=== PATIENT | female | born 1980 | race Caucasian/White ===

== ENCOUNTER → 2018-05-19 | Outpatient (CLI) | payer OTHER | LOC: FIMAGING 12:36 | PROVIDERS: ATTEND Obstetrics & Gynecology | DX: O09.512 Supervision of elderly primigravida, second trimester (principal); Z3A.19 19 weeks gestation of pregnancy; Z82.79 Family history of other congenital malformations, deformations and chromosomal abnormalities; Z86.012 Personal history of benign carcinoid tumor ==

== ENCOUNTER → 2018-06-25 | Outpatient (CLI) | payer OTHER | LOC: FIMAGING 09:08 | PROVIDERS: ATTEND Obstetrics & Gynecology | DX: O09.512 Supervision of elderly primigravida, second trimester (principal); Z3A.25 25 weeks gestation of pregnancy ==

== ENCOUNTER 2018-10-09 12:31 | Inpatient (IN) | payer OTHER ==
[2018-10-09] MEDS ORDERED: OXYTOCIN/RINGERS LACTATE 500 ML IV SCH (13:43)
[2018-10-09] MEDS ORDERED: LR 500 ML IV PRN (13:43)
[2018-10-09] MEDS ORDERED: OLIVE OIL 118 ML BTL MISC PRN (13:43)
[2018-10-09] MEDS ORDERED: MISOPROSTOL 200 MCG TAB PR PRN (13:43)
[2018-10-09] MEDS ORDERED: EPSOM SALT 454 GM TP PRN (13:43)
[2018-10-09] MEDS ORDERED: LR 1,000 ML IV PRN (13:43)
[2018-10-09] MEDS ORDERED: IBUPROFEN 600 MG TAB PO PRN (13:43)
[2018-10-09] MEDS ORDERED: OXYTOCIN/RINGERS LACTATE 1,000 ML IV PRN (13:43)
[2018-10-09] MEDS ORDERED: LIDOCAINE 1% 300 MG/30 ML SDV SC PRN (13:43)
[2018-10-09 14:03] LABS: PLATELET COUNT 174 10^3/uL (150-400)
[2018-10-09] MEDS ORDERED: fentaNYL 100 MCG/2 ML INJ ONE ×3 (14:28→19:33)
[2018-10-09] MEDS ORDERED: fentaNYL 2MCG/ML/BUP 0.1% RTU 100 ML BAG EP ONE (14:28)
[2018-10-09] MEDS ORDERED: PHENYLEPHRINE HCL 100 MCG/ML SYR ONE (14:28)
--- NOTE | 2018-10-09 14:34 | GHP ---
[f rep st] PREOP HISTORY AND PHYSICAL DATE OF ADMISSION: 10/09/2018 HISTORY UPON PRESENTATION: The patient is a 38-year-old G1, P0 at 40 weeks and 1 day with an estimat ed due date of 10/08 who presents in active labor. The patient reports spontaneous onset of contract ions approximately 8 a.m. Bag of water intact. Mild amount of bloody show. The patient had less fe juvencio movement; however, reassuring evaluation of fetus upon admission. The patient was 3 cm in the of fice earlier this week. First cervical exam shows the patient now is 6 cm dilated, 100% effaced at 0 station, and the patient is requesting an epidural. CARE: The patient has been followed with [facility] since 9 weeks' gestation. T he patient has had no complications during . Due to advanced maternal age, the patient had anatomy ultrasound with [facility], and this was all normal. The patient had early genetic testing, and jeanine t was also normal. Due to the family history of a cardiac abnormality, the fetus had an echocardiogr am, and this was normal. labs include maternal blood type of A negative and negative antibody screen, RPR nonreactive , rubella immune, hepatitis B surface antigen negative, HIV negative. Standard genetic carrier panel was negative. Verifi testing was normal with normal MSAFP. Urine drug screen was negative. Urinal ysis and culture negative. Pap smear in August 2017 was negative. Gonorrhea and chlamydia negativ e. Hematocrit had dropped from 41% down to 35%, and the patient was initiated on iron. It then show ed recovery up to 38%. 1-hour Glucola was normal. GBS culture was negative. Varicella testing was equivocal. The patient did receive RhoGAM on July 20. 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 It was felt that it was contai tim. No evidence of metastasis. The patient was followed by an oncologist for 5 years. The plan is to send the placenta to Pathology to ensure that there is nothing of concern with the placental tiss ue. PAST SURGICAL HISTORY: Only the appendix removal in 2005. ALLERGIES: The patient has agitation with codeine and suppressed respiration with Percocet. CURRENT MEDICATIONS: Only vitamins with DHA, iron. SOCIAL HISTORY: The patient is , lives with her , and is a nonsmoker. No alcohol or d rug use. The patient works at [employer]. FAMILY HISTORY: Paternal uncle also with appendiceal cancer and colon cancer. Paternal aunt with br east cancer, but was tested and was BRCA negative. Family also significant for the father of the bab y has a history of a hole in the heart. PHYSICAL EXAM UPON ADMISSION: GENERAL: The patient is a well-developed, well-nourished white female in moderate discomfort with the contractions. She is reporting pressure when she has the contractio ns. LUNGS: Clear to auscultation bilaterally. CARDIOVASCULAR: Regular rate and rhythm. ABDOMINAL : heart tones show a baseline in the 130s with moderate variability and accelerations, occasio nal small variable decelerations with good recovery. Category II tracing. Contractions every 2-4 mi nutes. CERVIX: 6 cm dilated, 100% effaced at 0 station. Bag of water intact. Heavy mucus discharg e. EXTREMITIES: Nontender, and no edema. ASSESSMENT: Intrauterine at 40 plus weeks' gestation. Spontaneous onset of contractions. In active labor. GBS is negative, and rubella immune. Maternal blood type A negative. History of appendiceal cancer, and we will send the placenta to Pathology after delivery. PLAN: The patient is requesting an epidural, and we will get her comfortable and then plan on AROM i f needed to continue good process of labor. /[id number]/MODL
[2018-10-09] MEDS ORDERED: LIDOCAINE 1% 300 MG/30 ML SDV ONE (14:56)
[2018-10-09] MEDS ORDERED: AMMONIA AROMATIC 1 EACH AMP IH ONE (14:57)
[2018-10-09] MEDS ORDERED: MISOPROSTOL 200 MCG TAB ONE (14:57)
[2018-10-09] MEDS ORDERED: TERBUTALINE SULFATE 1 MG/ML VIAL ONE (14:57)
[2018-10-09] MEDS ORDERED: OLIVE OIL 118 ML BTL MISC ONE (14:57)
[2018-10-09] MEDS ORDERED: OXYTOCIN 10 UNIT/ML VIAL ONE (14:57)
[2018-10-09] MEDS ORDERED: PHENYLEPHRINE HCL 100 MCG/ML SYR IVP PRN (15:02)
--- NOTE | 2018-10-09 15:04 | PREANESOB ---
Obstetric Pre-Anesthesia Info - General Info Proposed Procedure: trial of labor : 1 Para: 0 MARC: 10/08/18 Gestational Age: 40 week(s) and 1 day(s) - Info Status: Full Term Monitors: External FHR Pattern: Reassuring - Labor Status Magnesium Sulfate in Use: No Indications for Labor Analgesia: Pain Control Labor Epidural: Yes Anesthesia Allergies/Adverse Reactions: Allergy/AdvReac Type Severity Reaction Status Date / Time acetaminophen [From Percocet] Allergy Verified 10/09/18 13:13 codeine Allergy Verified 10/07/18 18:59 oxycodone [From Percocet] Allergy Verified 10/09/18 13:13 Home Medications: Medication Instructions Recorded Iron 1 tab PO AD 10/09/18 Dha 1 tab PO DAILY 10/09/18 Visit Medications: Generic Name Dose Route Start Last Admin Trade Name Freq PRN Reason Stop Dose Admin Lactated Ringer's 1,000 mls @ 0 mls/hr 10/09/18 13:43 Lr IV 10/10/18 13:42 PRN PRN SEE PROTOCOL CONDITIONS Protocol Per Protocol Oxytocin/Lactated Ringer's 500 mls @ 0 mls/hr 10/09/18 13:43 Pitocin 30 Units/Lr (Premix) IV 04/07/19 13:42 CONT LIZZ Protocol Per Protocol Oxytocin/Lactated Ringer's 1,000 mls @ 125 mls/hr 10/09/18 13:43 Pitocin 20 Units/Lr (Premix) IV PRN PRN Post bleeding Ibuprofen 600 mg 10/09/18 13:43 Motrin PO ONCE PRN post , pain Lidocaine HCl 300 mg 10/09/18 13:43 Lidocaine Hcl 1% SC 04/07/19 13:42 ONCE PRN episiotomy Magnesium Sulfate 454 gm 10/09/18 13:43 Epsom Salt TP 04/07/19 13:42 Q1H PRN perineal discomfort Misoprostol 800 - 1,000 mcg 10/09/18 13:43 Cytotec NH ONCE PRN Vaginal Atony/Bleeding Iona Oil 118 ml 10/09/18 13:43 Sweet Oil MISC 04/07/19 13:42 ONCE PRN perineal massage Discontinued Medications Generic Name Dose Route Start Last Admin Trade Name Freq PRN Reason Stop Dose Admin Ammonia (Aromatic Spirit) Confirm 10/09/18 14:57 Ammonia Aromatic Administered 10/09/18 14:58 Dose 1 each IH .STK-MED ONE Fentanyl Confirm 10/09/18 14:28 Sublimaze Administered 10/09/18 14:29 Dose 100 mcg .ROUTE .STK-MED ONE Fentanyl/Bupivacaine HCl Confirm 10/09/18 14:28 Fentanyl/Bupivacaine/Ns 2 Mcg/Ml 0.1% (Premix Administered 10/09/18 14:29 Dose 100 ml EP .STK-MED ONE Lactated Ringer's 500 mls @ 500 mls/hr 10/09/18 13:43 10/09/18 14:00 Lr IV 500 mls PRN PRN Administration Maternal Hypotension Lidocaine HCl Confirm 10/09/18 14:56 Lidocaine Hcl 1% Administered 10/09/18 14:57 Dose 300 mg .ROUTE .STK-MED ONE Misoprostol Confirm 10/09/18 14:57 Cytotec Administered 10/09/18 14:58 Dose 1,000 mcg .ROUTE .STK-MED ONE Iona Oil Confirm 10/09/18 14:57 Sweet Oil Administered 10/09/18 14:58 Dose 118 ml MISC .STK-MED ONE Oxytocin Confirm 10/09/18 14:57 Pitocin Administered 10/09/18 14:58 Dose 40 unit .ROUTE .STK-MED ONE Phenylephrine HCl Confirm 10/09/18 14:28 Neosynephrine Administered 10/09/18 14:29 Dose 1,000 mcg .ROUTE .STK-MED ONE Terbutaline Sulfate Confirm 10/09/18 14:57 Brethine Administered 10/09/18 14:58 Dose 1 mg .ROUTE .STK-MED ONE - Anesthesia History Response to Local Anesthetics: Normal Anesthesia & Operative History: No Prior Problems Family Anesthesia History: Not Applicable - Social History Substance Use/Abuse: Denies - Vital Signs Height/Weight (Nursing): Height 162.56 cm Weight 75.75 kg - Focused Exam Mallampati Score: Class 2 Mouth exam: normal dental/mouth exam Pulmonary: no respiratory distress Cardiovascular: regular rate and rhythym Labs: 10/09/18 13:51 Patient ABO/Rh A NEGATIVE 10/09/18 13:51 - Plan Consent Signed and on Chart: Yes Patient/Guardian Understands and Agrees to Plan: Yes
[2018-10-09] MEDS ORDERED: fentaNYL 2MCG/ML/BUP 0.1% RTU 100 ML EP SCH (15:30)
[2018-10-09] MEDS ORDERED: LR 500 ML IV SCH (15:30)
--- NOTE | 2018-10-09 18:02 | OBPROG ---
Labor Progress Note Assessment/Plan: Assessment: IUP at 40w1d SOOC, ?SROM 30 min ago GBS - Plan: forebag palp - AROM clear, completely dilated 10/09/18 17:59 Subjective/Intrapartum Course: 10/09/18 18:02 Pt doing well. comf with JUAQUIN except having pressure with ctxns. on exam 10/100 /+1 and forebag palpable - AROM with clear. pt began pushing with good effort. Objective: 10/09/18 13:51 Patient ABO/Rh A NEGATIVE 10/09/18 13:51 - SVE Dilation (cm): 10 Effacement (%): 100 Station: +1 Membranes: AROM Amniotic Fluid Color: Clear Dilation Complete Date: 10/09/18 Dilation Complete Time: 17:45 - Contraction Pattern Assessment Current Contraction Pattern: Regular (q 2 min) - FHR Assessment [place] FHR (bpm): 130 FHR Pattern Variability: Moderate FHR Category: 2 (variable decels) - Procedures Non-surgical Procedures: Amniotomy Oxytocin Orders Assessment - Pre-Induction/Augmentation Assessment Gestational Age: 40 week(s) and 1 day(s) ICD10 Worksheet Patient Problems: Problems Problem Status Onset Normal labor Acute
[2018-10-09] MEDS ORDERED: fentaNYL 100 MCG/2 ML INJ IVP ONE (19:00)
[2018-10-09] MEDS ORDERED: ACETAMINOPHEN 325 MG TAB PO PRN (20:02)
--- NOTE | 2018-10-09 20:13 | OBDEL ---
Info Type: Vaginal Presentation at Delivery: Vertex L&D Analgesia/Anesthesia Type: Epidural, IV Narcotics (x 2 doses Fentanyl) GBS+: No Intrapartum Medications: Discontinued Medications Generic Name Dose Route Start Last Admin Trade Name Reginald PRN Reason Stop Dose Admin Lactated Ringer's 500 mls @ 500 mls/hr 10/09/18 13:43 10/09/18 14:00 Lr IV 500 mls PRN PRN Administration Maternal Hypotension Oxytocin/Lactated Ringer's 1,000 mls @ 125 mls/hr 10/09/18 13:43 10/09/18 19: 58 Pitocin 20 Units/Lr (Premix) IV 1,000 mls PRN PRN Administration Post bleeding Ibuprofen 600 mg 10/09/18 13:43 10/09/18 19:58 Motrin PO 600 mg ONCE PRN Administration post , pain 1 gm Ancef after uterine currettage - Hospital Course Intrapartum: 10/09/18 18:02 Pt doing well. comf with JUAQUIN except having pressure with ctxns. on exam 10/100 /+1 and forebag palpable - AROM with clear. pt began pushing with good effort. Indications for Delivery: Spontaneous Labor, SROM Vaginal Delivery - Delivery Provider Delivery Physician/CNM: Nery Sharpe - Labor and Delivery Onset of Contractions Date: 10/09/18 Onset of Contractions Time: 08:00 Onset of Contractions Type: Spontaneous Rupture of Membranes Date: 10/09/18 Rupture of Membranes Time: 16:30 Rupture of Membranes Type: Spontaneous Amniotic Fluid Color: Clear, Thick Meconium (initially clear then approx 30 min later, was mod-thick mec) Dilation Complete Date: 10/09/18 Dilation Complete Time: 17:45 Placenta Delivery Date: 10/09/18 Placenta Delivery Time: 18:55 Total Hours of Labor: 10 Non-surgical Procedures: Amniotomy Laceration: 1st Degree (periurethral bilaterally), 2nd Degree (MLL) Repair: 3-0, Vicryl Vaginal Sponge Count Correct: Yes Vaginal Needle Count Correct: Yes Vaginal Sweep Performed: Yes EBL: 400ml Delivery Events: Retained Placenta (trailing membranes after placental delivery. Small clots noted and u/s done and small tissue noted in [place] - o/w stripe thin. [facility] curretting obtained small tissue/membrane.), Other ( Specify) (compound left arm) - Medications Labor Augmentation/Induction Methods Used: None [place] Data MARC: 10/08/18 Gestational Age: 40 week(s) and 1 day(s) [place] Delivery Date: 10/09/18 Delivery Time: 18:49 Sex of : Male Score (1 Min): 5 Score (5 Min): 7 ICD10 Worksheet Patient Problems: Problems Problem Status Onset Retained placenta or amniotic membrane after delivery without hemorrhage Acute (spontaneous vaginal delivery) Acute currettage Acute
[2018-10-10] MEDS: IBUPROFEN 600 MG TAB PO PRN ×4 (04:37→23:39)
--- NOTE | 2018-10-10 12:33 | OBPP ---
Progress Note Assessment/Plan: Assessment: PPD1 s/p . Retained Placenta (trailing membranes after placental delivery) .Small clots noted and u/s done and small tissue noted in [place] - o/w stripe thin. [facility] curetting obtained small tissue/membrane. Routine cares. Hct 38 - no need for iron. Colace ordered this AM. Likely home tomorrow - depending on how baby is doing. Today was able to to go off CPAP and on to supplemental O2 with some trials off O2 altogether. Rh neg - Rhogam if indicated. Rubella immune. Laboratory Tests 03/14/18 09/14/18 10/09/18 08:20 18:29 13:51 Hct 41.9 Rubella IgG Antibody 42.90 Group B Strep DNA NEGATIVE Patient ABO/Rh Antibody Screen Antibody Identification 10/09/18 10/10/18 13:51 04:30 Hct 38.8 Rubella IgG Antibody Group B Strep DNA Patient ABO/Rh A NEGATIVE Antibody Screen POSITIVE Antibody Identification SIG ANTIBODIES RULED OUT Subjective/ Course: Doing well - really happy with how everything is going - happy that baby is off CPAP this AM. They had baby on room air for a time but now needing just supplemental O2. Kathryns pain is minimal, tolerating diet, up and around. Objective: 10/10/18 04:30 Patient ABO/Rh A NEGATIVE 10/09/18 13:51 Temp Pulse Resp BP Pulse Ox 36.4 C 72 14 116/70 97 10/10/18 10:20 10/10/18 10:20 10/10/18 10:20 10/10/18 10:20 10/10/18 10:20 Uterine Position/Fundal Height: Umbilicus -2 Uterine Tone: Firm
[2018-10-10] MEDS: DOCUSATE SODIUM 100 MG CAP PO SCH ×2 (17:37→23:39)
--- NOTE | 2018-10-10 19:32 | POSTANESTH ---
Post Anesthetic Evaluation Cardiovascular Status: Normal, Stable Respiratory Status: Normal, Stable Level of Consciousness/Mental Status: Can Participate in Eval Pain Control: Adequate, Prn Tx Ordered Nausea/Vomiting Control: Adequate, Prn Tx Ordered Complications Possibly Related to Anesthesia: None Noted (Pt doing well s/p JUAQUIN for delivery. No headache, no residual block. Pt was satisfied with effectiveness of epidural for labor pain control.)
[2018-10-11] MEDS: IBUPROFEN 600 MG TAB PO PRN ×3 (05:58→17:34)
[2018-10-11 07:43] VITALS: BP 113/78
[2018-10-11] MEDS: DOCUSATE SODIUM 100 MG CAP PO SCH (07:52)
--- NOTE | 2018-10-11 12:09 | OBPP ---
Progress Note Assessment/Plan: Assessment: PPD 2 s/p baby still needing small amt O2 Plan: Pt will go to boarder status. 10/09/18 17:59 10/11/18 12:05 Subjective/ Course: Doing well - really happy with how everything is going - happy that baby is off CPAP this AM. They had baby on room air for a time but now needing just supplemental O2. Kathryns pain is minimal, tolerating diet, up and around. 10/11/18 12:09 Doing great - bld is light. urinating fine. Bottom is sore but ibu controls. Baby is latching fine. Baby still on O2 - small amount. Disc boarder status. Objective: 10/10/18 04:30 Patient ABO/Rh A NEGATIVE 10/09/18 13:51 Temp Pulse Resp BP Pulse Ox 36.0 C 74 16 113/78 99 10/11/18 07:42 10/11/18 07:42 10/11/18 07:42 10/11/18 07:42 10/11/18 07:42 Uterine Position/Fundal Height: Umbilicus -2 Uterine Tone: Firm Physical Exam - Physical Exam Abdomen: non-tender, soft, other (FF at umb -2, minimal lochia) Extremities: non-tender, pedal edema (none) Skin: normal color, warm/dry Neuro/Psych: alert, normal mood/affect
--- NOTE | 2018-10-11 12:15 | OBGCSDC ---
General Delivery Information - General Info : 1 Para: 1 Abortions: 0 Type: Vaginal L&D Analgesia/Anesthesia Type: Epidural Admission Date: 10/09/18 Labs: Patient ABO/Rh A NEGATIVE 10/09/18 13:51 Hct 38.8 % (38.0-47.0) 10/10/18 04:30 - Hospital Course Intrapartum: 10/09/18 18:02 Pt doing well. comf with JUAQUIN except having pressure with ctxns. on exam 10/100 /+1 and forebag palpable - AROM with clear. pt began pushing with good effort. : Doing well - really happy with how everything is going - happy that baby is off CPAP this AM. They had baby on room air for a time but now needing just supplemental O2. Kathryns pain is minimal, tolerating diet, up and around. 10/11/18 12:09 Doing great - bld is light. urinating fine. Bottom is sore but ibu controls. Baby is latching fine. Baby still on O2 - small amount. Disc boarder status. Vaginal - Delivery Provider Delivery Physician/CNM: Nery Sharpe - Diagnosis Labor: Spontaneous Rupture of Membranes Type: Spontaneous Amniotic Fluid Color: Clear, Thick Meconium (initially clear then approx 30 min later, was mod-thick mec) Laceration: 1st Degree (periurethral bilaterally), 2nd Degree (MLL) Repair: 3-0, Vicryl Delivery Events: Retained Placenta (trailing membranes after placental delivery. Small clots noted and u/s done and small tissue noted in [place] - o/w stripe thin. [facility] curretting obtained small tissue/membrane.), Other ( Specify) (compound left arm) - Procedures Non-surgical Procedures: Amniotomy - Delivery Non-surgical Procedures: Amniotomy EBL: 400ml Data MARC: 10/08/18 Gestational Age: 40 week(s) and 3 day(s) [place] Delivery Date: 10/09/18 Delivery Time: 18:49 Sex of : Male Kyle Weight (gm): 3194 g Score (1 Min): 5 Score (5 Min): 7 Discharge Information - Discharge Information Condition: Good Instruction/Follow Up: See Instruction Sheet, Two Weeks (2-3 wks with therapist) , Six Weeks (with LJ)
== END 2018-10-11 17:45 | disposition home or self-care (01) | DRG 807 ==
LOC: FLD 12:31 → FOB 22:49
PROVIDERS: ADMIT Obstetrics & Gynecology; ATTEND Obstetrics & Gynecology
PROC: 0KQM0ZZ Repair Perineum Muscle, Open Approach (ICD-10-PCS; principal; 2018-10-09)
PROC: 10907ZC Drainage of Amniotic Fluid, Therapeutic from Products of Conception, Via Natural or Artificial Opening (ICD-10-PCS; principal; 2018-10-09)
PROC: 10E0XZZ Delivery of Products of Conception, External Approach (ICD-10-PCS; principal; 2018-10-09)
DX: O70.1 Second degree perineal laceration during delivery (principal); Z37.0 Single live birth; Z3A.40 40 weeks gestation of pregnancy
CPT/HCPCS: J0690; J2370; J2590; J3010; J3105

== ENCOUNTER → 2018-10-22 | Outpatient (CLI) | payer OTHER | LOC: FLACT 10:02 | PROVIDERS: ATTEND Obstetrics & Gynecology | DX: Z39.1 Encounter for care and examination of lactating mother (principal) | CPT/HCPCS: G0463 ==